=== PATIENT | female | born 1990 | race Caucasian/White ===

== ENCOUNTER 2019-11-07 09:03 | Emergency (ER) | payer BC ==
[~2019-11-07] VITALS: Ht 165.1 cm; Wt 53.6 kg
[2019-11-07] MEDS ORDERED: METOPROLOL SUCC25 M1 PO (09:07)
[2019-11-07 09:53] LABS: ALBUMIN 4.2 g/dL (3.5-5.0); POTASSIUM 3.7 mmol/L (3.5-5.1)
[2019-11-07 09:54] LABS: CALCIUM 9.8 mg/dL (8.3-10.5)
[2019-11-07 09:57] LABS: TOTAL BILIRUBIN 0.4 mg/dL (0.2-1.2)
[2019-11-07 10:00] LABS: HEMATOCRIT 41.6 % (37.0-47.0); MEAN CELL VOLUME 92 fl (78-100); MEAN CORPUSCULAR HEMOGLOBIN 31 pg (27-31); MEAN CORPUSCULAR HGB CONC 34 g/dL (33-37); MEAN PLATELET VOLUME 11.5 fl (7.4-10.4); PLATELET COUNT 199 K/mm3 (130-400); WHITE BLOOD COUNT 4.3 K/mm3 (4.8-10.8)
[2019-11-07 10:03] LABS: BAND 1 % (0-10); LYMPHOCYTE 36 % (20-51); MONOCYTE 17 % (3-10); NEUTROPHILS 46 % (42-75)
[2019-11-07 11:43] VITALS: BP 99/66
== END 2019-11-07 11:42 | disposition home or self-care (01) ==
LOC: ED 09:03
PROVIDERS: Family Medicine
DX: B34.9 Viral infection, unspecified (principal)
CPT/HCPCS: J7030

== ENCOUNTER 2020-03-27 11:04 | Emergency (ER) | payer BC ==
[~2020-03-27] VITALS: Ht 165.1 cm; Wt 50.5 kg
[~2020-03-27 11:04] MED LIST: METOPROLOL SUCC25 M1 PO
[2020-03-27 12:03] LABS: EOS # 0.1 (0.04-0.40); EOS % 1.3 % (1.0-5.0); HEMATOCRIT 41.6 % (37.0-47.0); HEMOGLOBIN 13.9 g/dL (12.5-16.0); LYMPH# 2.1 (1.50-4.00); MEAN CELL VOLUME 94 fl (78-100); MEAN CORPUSCULAR HEMOGLOBIN 32 pg (27-31); MEAN CORPUSCULAR HGB CONC 33 g/dL (33-37); MEAN PLATELET VOLUME 11.1 fl (7.4-10.4); MONO # 0.4 (0.20-0.80); NEU # 2.7 (1.40-6.50); PLATELET COUNT 226 K/mm3 (130-400); RED BLOOD COUNT 4.41 M/mm3 (4.10-5.30); RED CELL DISTRIBUTION WIDTH 11.7 % (11.5-14.5); WHITE BLOOD COUNT 5.3 K/mm3 (4.8-10.8)
[2020-03-27 12:14] LABS: ALBUMIN 4.3 g/dL (3.5-5.0); POTASSIUM 4.1 mmol/L (3.5-5.1)
[2020-03-27 12:15] LABS: CALCIUM 9.3 mg/dL (8.3-10.5)
[2020-03-27 12:16] LABS: TOTAL PROTEIN 7.4 g/dL (6.4-8.3)
[2020-03-27 12:18] LABS: TOTAL BILIRUBIN 0.6 mg/dL (0.2-1.2)
[2020-03-27] MEDS ORDERED: MIDODRINE HCL 5 MG T (12:58)
[2020-03-27] MEDS ORDERED: HYOSCYAMINE0.125 M7 (12:58)
[2020-03-27] MEDS ORDERED: MECLIZINE (12:59)
[2020-03-27] MEDS ORDERED: FLORINEF 00.1 MG/TAB (12:59)
[2020-03-27 14:09] VITALS: BP 122/66
== END 2020-03-27 14:09 | disposition home or self-care (01) ==
LOC: ED 11:04
PROVIDERS: Nurse Practitioner Primary Care
DX: R07.89 Other chest pain (principal)
CPT/HCPCS: Q9967

== ENCOUNTER → 2020-04-19 | Outpatient (CLI) | payer BC ==
[2020-03-27 14:09] VITALS: BP 122/66
[~2020-04-19] MED LIST changes: +FLORINEF 00.1 MG/TAB; +HYOSCYAMINE0.125 M7; +MECLIZINE; +MIDODRINE HCL 5 MG T
== END ==
LOC: RAD 07:30
DX: M25.552 Pain in left hip (principal); Z98.890 Other specified postprocedural states

== ENCOUNTER 2020-05-17 08:30 | Outpatient (RCR) | payer BC | END 2020-05-17 09:30 | disposition still patient (30) | LOC: PT 08:30 | DX: M25.552 Pain in left hip (principal); Z98.890 Other specified postprocedural states ==

== ENCOUNTER 2020-08-09 15:00 | Outpatient (RCR) | payer BC | END 2020-08-21 | disposition home or self-care (01) | LOC: PT | DX: Z98.890 Other specified postprocedural states (principal) ==

== ENCOUNTER 2021-04-08 06:04 | Emergency (ER) | payer BC ==
[~2021-04-08] VITALS: Ht 165.1 cm; Wt 53.5 kg
[2021-04-08 07:35] LABS: POTASSIUM 3.8 mmol/L (3.5-5.1)
[2021-04-08 07:36] LABS: CALCIUM 9.8 mg/dL (8.3-10.5)
[2021-04-08 08:45] LABS: URINE APPEARANCE HAZY; URINE BILIRUBIN NEGATIVE (NEGATIVE); URINE BLOOD NEGATIVE (NEGATIVE); URINE COLOR YELLOW; URINE GLUCOSE NEGATIVE (NEGATIVE); URINE KETONE SMALL (NEGATIVE); URINE LEUKOCYTE ESTERASE NEGATIVE (NEGATIVE); URINE NITRATE NEGATIVE (NEGATIVE); URINE PROTEIN(semi-quant) NEGATIVE (NEGATIVE); URINE UROBILINOGEN NORMAL (NORMAL)
[2021-04-08] MEDS ORDERED: BONJESTA ER 201 EACH PO (08:46)
[2021-04-08 09:01] LABS: BASO # 0.02 (0.02-0.10); EOS # 0.02 (0.04-0.40); EOS % 0.2 % (1.0-5.0); HEMATOCRIT 39.8 % (37.0-47.0); HEMOGLOBIN 13.7 g/dL (12.5-16.0); LYMPH# 1.86 (1.50-4.00); MEAN CELL VOLUME 92 fl (78-100); MEAN CORPUSCULAR HEMOGLOBIN 32 pg (27-31); MEAN CORPUSCULAR HGB CONC 34 g/dL (33-37); MEAN PLATELET VOLUME 11.8 fl (7.4-10.4); MONO # 0.46 (0.20-0.80); NEU # 6.25 (1.40-6.50); PLATELET COUNT 231 K/mm3 (130-400); RED BLOOD COUNT 4.35 M/mm3 (4.10-5.30); WHITE BLOOD COUNT 8.6 K/mm3 (4.8-10.8)
[2021-04-08 09:11] VITALS: BP 124/75
== END 2021-04-08 09:11 | disposition home or self-care (01) ==
LOC: ED 06:04
PROVIDERS: Family Medicine; Nurse Practitioner
DX: O21.9 Vomiting of pregnancy, unspecified (principal); O99.611 Diseases of the digestive system complicating pregnancy, first trimester; R19.7 Diarrhea, unspecified; Z20.822 Contact with and (suspected) exposure to COVID-19; Z3A.01 Less than 8 weeks gestation of pregnancy
CPT/HCPCS: J2405; J7030

== ENCOUNTER 2024-03-23 21:12 | Emergency (ER) | payer OTHER ==
[~2024-03-23] VITALS: Wt 53.5 kg
[~2024-03-23 21:12] MED LIST changes: +BONJESTA ER 201 EACH PO
[2024-03-23] MEDS ORDERED: SERTRALINE HYDR25 MG PO (21:29)
[2024-03-23] MEDS ORDERED: Ketorolac 30 MG/ML VIAL IV ONE (21:45)
[2024-03-23] MEDS ORDERED: Ondansetron 4 MG/2 ML VIAL IV ONE (21:45)
[2024-03-23] MEDS ORDERED: NS 1,000 ML IV SCH (21:45)
[2024-03-23 21:52] LABS: BASO # 0.03 K/mm3 (0.02-0.10); EOS # 0.03 K/mm3 (0.04-0.40); EOS % 0.5 % (1.0-5.0); HEMATOCRIT 40.6 % (37.0-47.0); HEMOGLOBIN 13.9 g/dL (12.5-16.0); LYMPH# 1.29 K/mm3 (1.50-4.00); MEAN CELL VOLUME 93 fl (78-100); MEAN CORPUSCULAR HEMOGLOBIN 32 pg (27-31); MEAN CORPUSCULAR HGB CONC 34 g/dL (33-37); MONO # 0.61 K/mm3 (0.20-0.80); NEU # 4.14 K/mm3 (1.40-6.50); PLATELET COUNT 214 K/mm3 (130-400); RED BLOOD COUNT 4.38 M/mm3 (4.10-5.30); RED CELL DISTRIBUTION WIDTH 11.2 % (11.5-14.5); WHITE BLOOD COUNT 6.1 K/mm3 (4.8-10.8)
[2024-03-23 21:59] LABS: ALBUMIN 4.3 g/dL (3.5-5.0)
[2024-03-23 22:00] LABS: SODIUM 140 mmol/L (136-145)
[2024-03-23 22:01] LABS: CALCIUM 9.1 mg/dL (8.3-10.5)
[2024-03-23 22:02] LABS: GLUCOSE 107 mg/dL (65-105); TOTAL PROTEIN 6.9 g/dL (6.4-8.3)
[2024-03-23 22:03] LABS: CARBON DIOXIDE 21 mmol/L (22-29)
[2024-03-23 22:04] LABS: TOTAL BILIRUBIN 1.4 mg/dL (0.2-1.2)
[2024-03-23 22:07] LABS: AST-SGOT 219 U/L (5-34)
[2024-03-23 22:09] LABS: ALT/SGPT 126 U/L (0-55)
[2024-03-23 22:15] LABS: D-DIMER 0.44 mg/L FEU (0.15-0.50)
[2024-03-23 22:18] LABS: TROPONIN-I < 0.030 ng/mL (0.00-0.033)
[2024-03-23] MEDS ORDERED: Iohexol 300 - 100 ML VIAL IV ONE (22:40)
[2024-03-23] MEDS ORDERED: Mag/Al Hydrox/Simeth Susp 30 ML CUP PO ONE (22:45)
[2024-03-23] MEDS ORDERED: Lidocaine 2% Viscous 15 ML UNIT DOSE CUP MM ONE (22:45)
[2024-03-23] MEDS ORDERED: ONDANSETRON HYDR4 MG PO (23:42)
[2024-03-23 23:47] VITALS: BP 116/78
== END 2024-03-23 23:47 | disposition home or self-care (01) ==
LOC: ED 21:12
PROVIDERS: Registered Nurse
DX: K29.70 Gastritis, unspecified, without bleeding (principal); R74.01 Elevation of levels of liver transaminase levels
CPT/HCPCS: J1885; J2405; J7030; Q9967

== ENCOUNTER → 2024-10-11 | Outpatient (CLI) | payer OTHER ==
[~2024-10-11] MED LIST changes: +ONDANSETRON HYDR4 MG PO; +SERTRALINE HYDR25 MG PO
== END ==
LOC: RAD 11:18
DX: M54.2 Cervicalgia (principal)